=== PATIENT | male | born 1995 | race Caucasian/White ===

== ENCOUNTER 2017-06-17 07:49 | Emergency (ER) | payer BC ==
[2017-06-17] MEDS ORDERED: Lidocaine 1% 20 ML MDV INJECT ONE (08:05)
[2017-06-17] MEDS ORDERED: Bacitracin Oint 1 GM U/D Packet TOP ONE (08:05)
--- NOTE | 2017-06-17 08:07 | EDM.PDOC ---
ED HPI GENERAL MEDICAL PROBLEM - General Chief Complaint: Lower Extremity Injury/Pain Stated Complaint: RIGHT INDEX FINGER TRAUMA Time Seen by Provider: 06/17/17 08:01 - History of Present Illness INITIAL COMMENTS - FREE TEXT/NARRATIVE: HISTORY AND PHYSICAL: History of present illness: The patient is a healthy 22-year-old male who presents after sustaining injury to his right index finger while at home. The patient was in his usual state of good health with no systemic complaints and he is unsure of his last tetanus shot, and he says that he was trying to get out the door to get his dog outside to go to the bathroom and he is unsure if the door scraped his finger or if the door pushed him and he impacted the finger. He's here because of a laceration to his right second finger and discomfort in that area. He said it would not stop bleeding otherwise he would not be here. He is able to flex and extend the finger and he does not have any neurosensory changes in the finger and no other injuries to the hand. He is right-hand dominant Review of systems: As per history of present illness and below otherwise all systems reviewed and negative. Past medical history: As per history of present illness and as reviewed below otherwise noncontributory. Surgical history: As per history of present illness and as reviewed below otherwise noncontributory. Social history: No reported history of drug or alcohol abuse. Family history: As per history of present illness and as reviewed below otherwise noncontributory. Physical exam: Gen.: Well-developed well-nourished man who is nontoxic and vital signs were reviewed by me HEENT: Atraumatic, normocephalic, negative for conjunctival pallor or scleral icterus, mucous membranes moist, throat clear, neck supple, nontender, trachea midline. Lungs: Clear to auscultation, breath sounds equal bilaterally, chest nontender. Heart: S1S2, regular rate and rhythm no overt murmurs Abdomen: Soft, nondistended, nontender. NABS Pelvis: Deferred Genitourinary: Deferred. Rectal: Deferred. Extremities: Atraumatic with full range of motion of all extremities including the right index finger where there is a 2.75 cm laceration in a curved fashion around the PIP area. There is no soft tissue swelling and the skin edges do separate. No foreign bodies are appreciated. There are no palpable bony deformities and there are no other injuries to the other digits or hand. The legs are, negative for cords or calf pain. Neurovascular unremarkable. Neuro: Awake, alert, oriented. Cranial nerves II through XII unremarkable. Cerebellum unremarkable. Motor and sensory unremarkable throughout. Exam nonfocal. Diagnostics: X-ray right index finger Therapeutics: Tdap, wound care Procedure note--- after the procedure was explained to the patient and the area was irrigated by nursing the wound is explored and no foreign bodies are appreciated. 1% lidocaine without epinephrine was placed in a digital and local block fashion. The skin edges were reapproximated using simple interrupted sutures for a total number of #5 sutures of 4-0 nylon. There are no complications and the patient tolerated the procedure well. Bacitracin and a tube gauze was placed by nursing. Impression: Right index finger injury/laceration Definitive disposition and diagnosis as appropriate pending reevaluation and review of above. right index finger Pain Score (Numeric/FACES): 3 - Related Data Allergies Allergy/AdvReac Type Severity Reaction Status Date / Time No Known Allergies Allergy Verified 06/17/17 08:30 Home Meds: Home Meds . [No Known Home Meds] 06/17/17 [History] Review of Systems - Review of Systems Review Of Systems: ROS reveals no pertinent complaints other than HPI. ED EXAM, GENERAL - Physical Exam Exam: See Below (See dictation) Course - Vital Signs Last Recorded V/S: Last Vital Signs Temp 37.1 C 06/17/17 08:19 Pulse 74 06/17/17 08:19 Resp 18 06/17/17 08:19 BP 136/80 06/17/17 08:19 Pulse Ox 96 06/17/17 08:19 - Orders/Labs/Meds Orders: Active Orders 24 hr Category Date Time Status Communication Order [RC] STAT Care 06/17/17 08:05 Active Vaccines to be Administered [RC] PER UNIT ROUTINE Care 06/17/17 08:10 Active Meds: Medications Discontinued Medications Generic Name Dose Route Start Last Admin Trade Name Freq PRN Reason Stop Dose Admin Bacitracin 1 dose 06/17/17 08:05 06/17/17 08:36 Bacitracin Oint 1 Gm TOP 06/17/17 08:06 1 dose ONETIME ONE Administration Diphtheria/Tetanus/Acell Pertussis 0.5 ml 06/17/17 08:10 06/17/17 08:36 Adacel IM 06/17/17 08:11 0.5 ml .ONCE ONE Administration Lidocaine HCl 20 ml 06/17/17 08:05 06/17/17 08:36 Xylocaine 1% INJECT 06/17/17 08:06 20 ml ONETIME ONE Administration Departure - Departure Time of Disposition: 09:03 Disposition: Home, Self-Care 01 Condition: Good Clinical Impression: Finger laceration Qualifiers: Encounter type: initial encounter Finger: index finger Damage to nail status: without damage Foreign body presence: without foreign body Laterality: right Qualified Code(s): S61.210A - Laceration without foreign body of right index finger without damage to nail, initial encounter - Discharge Information Referrals: PCP,None [Primary Care Provider] - Forms: ED Department Discharge Additional Instructions: The following information is given to patients seen in the emergency department who are being discharged to home. This information is to outline your options for follow-up care. We provide all patients seen in our emergency department with a follow-up referral. The need for follow-up, as well as the timing and circumstances, are variable depending upon the specifics of your emergency department visit. If you don't have a primary care physician on staff, we will provide you with a referral. We always advise you to contact your personal physician following an emergency department visit to inform them of the circumstance of the visit and for follow-up with them and/or the need for any referrals to a consulting specialist. The emergency department will also refer you to a specialist when appropriate. This referral assures that you have the opportunity for followup care with a specialist. All of these measure are taken in an effort to provide you with optimal care, which includes your followup. Under all circumstances we always encourage you to contact your private physician who remains a resource for coordinating your care. When calling for followup care, please make the office aware that this follow-up is from your recent emergency room visit. If for any reason you are refused follow-up, please contact the [facility] emergency department at and ask to speak to the emergency department charge nurse. [facility] Specialty clinic-Plastic Surgery and Hand Surgery Professional [address] [address] Keep dressing that was placed in the ER on for the next 24 hours then remove the dressing and cleanse with mild soap and water and pat dry. Please try to cleanse the area at least twice a day and apply bacitracin or Neosporin. Please stop the ointment after 3 days. Sutures need to be removed in 7 days either here in the ER with our hand specialist. Return to ER sooner for any problems and as discussed. - My Orders Last 24 Hours: My Active Orders 06/17/17 08:05 Communication Order [RC] STAT 06/17/17 08:10 Vaccines to be Administered [RC] PER UNIT ROUTINE - Assessment/Plan Last 24 Hours: My Active Orders 06/17/17 08:05 Communication Order [RC] STAT 06/17/17 08:10 Vaccines to be Administered [RC] PER UNIT ROUTINE
[2017-06-17] MEDS ORDERED: Diphtheria,Pertussis(Acell),Tetanus Vaccine 0.5 ML Syringe IM ONE (08:10)
--- NOTE | 2017-06-17 08:50 | CR ---
EXAMINATION: Right hand, second digit HISTORY: Trauma COMPARISON: None TECHNIQUE: 3 views FINDINGS/IMPRESSION: There is no acute osseous abnormality, dislocation, or fracture. Bone mineraliza tion and joint spaces appear preserved. Small osseous density adjacent to the third PIP joint is like ly a sesamoid.
== END 2017-06-17 09:19 | disposition home or self-care (01) ==
LOC: MW.ED 07:49
DX: S61.210A Laceration without foreign body of right index finger without damage to nail, initial encounter (principal); X58.XXXA Exposure to other specified factors, initial encounter; Z23 Encounter for immunization
CPT/HCPCS: 12002; 73140-26-F6; 73140-F6; 90471; 90715; 99283; 99283-25

== ENCOUNTER 2019-09-02 07:18 | Emergency (ER) | payer BC ==
[2019-09-02] MEDS ORDERED: Ketorolac 30 MG/ML SDV IM ONE (07:51)
--- NOTE | 2019-09-02 07:57 | EDM.PDOC ---
ED HPI GENERAL MEDICAL PROBLEM - General Chief Complaint: Lower Extremity Injury/Pain Stated Complaint: RT ANKLE PAIN Time Seen by Provider: 09/02/19 07:51 Source of Information: Reports: Patient History Limitations: Reports: No Limitations - History of Present Illness INITIAL COMMENTS - FREE TEXT/NARRATIVE: This is a 24-year-old gentleman who presents to the emergency room with a chief complaint of right lateral pain. Patient states that he has pain on the top of his foot that is worsened with movement. Patient states in the past he has pain in his great toe. Patient denies any trauma. Patient is employed through [employer] which involves a lot of walking. Patient did not walk a lot yesterday. Duration: Hour(s):, Getting Worse Location: Reports: Lower Extremity, Right Quality: Reports: Ache Severity: Mild Improves with: Reports: None Worsens with: Reports: None Associated Symptoms: Reports: No Other Symptoms foot Pain Score (Numeric/FACES): 8 - Related Data Allergies Allergy/AdvReac Type Severity Reaction Status Date / Time No Known Allergies Allergy Verified 09/02/19 07:49 Home Meds: Home Meds . [No Known Home Meds] 06/17/17 [History] Past Medical History Hematologic History: Reports: Other (See Below) Other Hematologic History: spherocytosis - Past Surgical History GI Surgical History: Reports: Other (See Below) Other GI Surgeries/Procedures: splenectomy Social & Family History - Family History Family Medical History: Noncontributory - Caffeine Use Caffeine Use: Reports: None Review of Systems - Review of Systems Review Of Systems: See Below Constitutional: Reports: No Symptoms Ears: Reports: No Symptoms Nose: Reports: No Symptoms Mouth/Throat: Reports: No Symptoms Respiratory: Reports: No Symptoms Cardiovascular: Reports: No Symptoms GI/Abdominal: Reports: No Symptoms Genitourinary: Reports: No Symptoms Musculoskeletal: Reports: Foot Pain Skin: Reports: No Symptoms Neurological: Reports: No Symptoms Psychiatric: Reports: No Symptoms ED EXAM, GENERAL - Physical Exam Exam: See Below General Appearance: Alert, WD/WN, No Apparent Distress Eye Exam: Bilateral Eye: Normal Fundi, Normal Inspection Ears: Normal External Exam, Normal Canal, Hearing Grossly Normal Ear Exam: Bilateral Ear: Auricle Normal, Canal Normal, TM normal Nose: Normal Inspection, Normal Mucosa, No Blood Throat/Mouth: Normal Inspection, Normal Lips, Normal Teeth, Normal Gums, Normal Oropharynx, Normal Voice, No Airway Compromise Head: Atraumatic, Normocephalic Neck: Normal Inspection, Supple, Non-Tender Respiratory/Chest: No Respiratory Distress Cardiovascular: Normal Peripheral Pulses, Regular Rate, Rhythm, No Murmur, No Rub GI/Abdominal: Normal Bowel Sounds, Soft, Non-Tender, No Abnormal Bruit, No Mass , Pelvis Stable (Male) Exam: No Hernia, Normal Inspection, Deferred Back Exam: Normal Inspection, Full Range of Motion Extremities: Normal Inspection, Normal Range of Motion, Normal Capillary Refill Neurological: Alert, Oriented, CN II-XII Intact Psychiatric: Normal Affect, Normal Mood Skin Exam: Warm, Dry, Intact, Normal Color Lymphatic: No Adenopathy Course - Vital Signs Text/Narrative:: This young gentleman presents to the emergency room complaining of foot pain. 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 No acute fractures are seen on x-ray. Patient has been given Toradol for pain. Patient does have minimal swelling of the lateral side dorsal aspect of the foot. Assessment: This might represent a possible old injury/arthritic pain versus gout. Patient has been instructed to follow-up with his primary care physician we will give the patient anti-inflammatory medications. Instruction as far as gout and diet. Last Recorded V/S: Last Vital Signs Temp 96.5 F L 09/02/19 07:49 Pulse 74 09/02/19 07:49 Resp 18 09/02/19 07:49 BP 110/65 09/02/19 07:49 Pulse Ox 97 09/02/19 07:49 - Orders/Labs/Meds Meds: Medications Discontinued Medications Generic Name Dose Route Start Last Admin Trade Name Stan PRN Reason Stop Dose Admin Ketorolac Tromethamine 30 mg 09/02/19 07:51 09/02/19 08:07 Toradol IM 09/02/19 07:52 30 mg ONETIME ONE Administration Departure - Departure Time of Disposition: 08:50 Disposition: Home, Self-Care 01 Condition: Good Clinical Impression: Gout, Fracture of foot - Discharge Information Instructions: Low-Purine Eating Plan Referrals: PCP,None [Primary Care Provider] - Forms: ED Department Discharge Sepsis Event Note - Focused Exam Vital Signs: Vital Signs Temp Pulse Resp BP Pulse Ox 09/02/19 07:49 96.5 F L 74 18 110/65 97 Date Exam was Performed: 09/02/19 Time Exam was Performed: 08:49
--- NOTE | 2019-09-02 08:21 | CR ---
Right foot: 3 views of the right foot were obtained. Comparison: No prior right foot exam. Bony density which is well-corticated is noted off the IP joint of the 1st digit compatible with old ununited avulsion injury. No acute fracture, dislocation or other bony abnormality is appreciated. Impression: 1. 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 2. No additional abnormality is appreciated on 3 view right foot exam. Diagnostic code #2 This report was dictated in MDT
== END 2019-09-02 09:09 | disposition home or self-care (01) ==
LOC: MW.ED 07:18
DX: S92.401 Displaced unspecified fracture of right great toe (principal); M10.9 Gout, unspecified; X58.XXXA Exposure to other specified factors, initial encounter
CPT/HCPCS: 73630; 96372; 99283; J1885

== ENCOUNTER 2023-11-24 17:49 | Emergency (ER) | payer OTHER, BC ==
[2023-11-24] MEDS ORDERED: Sodium Chloride 0.9% 10 ML Syringe FLUSH PRN (17:58)
[2023-11-24] MEDS ORDERED: Sodium Chloride 0.9% 2.5 ML Syringe FLUSH PRN (17:58)
[2023-11-24 18:13] LABS: HEMATOCRIT 43.3 % (42.0-52.0); HEMOGLOBIN 16.2 g/dL (14.0-18.0); MEAN CORPUSCULAR HEMOGLOBIN 32.4 pg (28.0-32.0); MEAN CORPUSCULAR HGB CONC 37.4 g/dL (32.0-36.0); MEAN CORPUSCULAR VOLUME 86.6 fL (83.0-99.0); MEAN PLATELET VOLUME 10.1 fL (9.4-12.4); PLATELET COUNT,PLT 406 K/uL (150-400); WHITE BLOOD CELL COUNT,WBC 25.31 K/uL (3.9-11.3)
[2023-11-24 18:36] LABS: A/G RATIO 1.3 (0.9-1.6); ALBUMIN 4.4 g/dL (3.4-5.0); BILIRUBIN TOTAL 1.2 mg/dL (0.2-1.0); CALCIUM 9.1 mg/dL (8.5-10.1); CARBON DIOXIDE,CO2 24.6 mmol/L (21.0-32.0); CREATININE 1.2 mg/dL (0.8-1.3); EST CRCL DRUG DOSING (CG) 112.52 mL/min; PROTEIN TOTAL,TP 7.8 g/dL (6.4-8.2)
[2023-11-24 18:50] LABS: BAND ABSOLUTE MAN 3.54; EOSINOPHILS ABSOLUTE MAN 0.25 K/uL (0.00-0.45); EOSINOPHILS PERCENT MAN 1 % (0-6); LYMPHOCYTES ABSOLUTE MAN 3.54 K/uL (1.00-4.80); LYMPHOCYTES PERCENT MAN 14 % (24-44); MONOCYTES ABSOLUTE MAN 2.02 K/uL (0.00-0.80); MONOCYTES PERCENT MAN 8 % (0-8); SEG NEUTROPHILS ABSOLUTE MAN 19.49 K/uL (1.80-7.70); SEG NEUTROPHILS PERCENT MAN 77 % (41-71)
[2023-11-24] MEDS: Iopamidol 755 MG/ML 500 ML Multipack Bottle IVPUSH STA (18:53)
[2023-11-24 19:06] LABS: INR 1.05 (0.86-1.11)
== END 2023-11-24 20:26 | disposition home or self-care (01) ==
LOC: MW.ED 17:49
DX: S40.011A Contusion of right shoulder, initial encounter (principal); Z75.8 Other problems related to medical facilities and other health care; V89.2XXA Person injured in unspecified motor-vehicle accident, traffic, initial encounter
CPT/HCPCS: 36415; 70450; 71045; 71275; 72125; 73030; 73070; 74177; 80053; 85025; 85610; 86850; 86900; 86901; 99284; Q9967

== ENCOUNTER 2025-03-24 14:34 | Emergency (ER) | payer BC, OTHER ==
[2025-03-24] MEDS: Lidocaine 1% with EPINEPHrine 1:200,000 30 ML SDV INJECT ONE (15:07)
[2025-03-24] MEDS ORDERED: Diphtheria,Pertussis(Acell),Tetanus Vaccine 0.5 ML Syringe ONE (16:09)
[2025-03-24] MEDS: Diphtheria,Pertussis(Acell),Tetanus Vaccine 0.5 ML Syringe IM ONE (16:12)
== END 2025-03-24 16:35 | disposition home or self-care (01) ==
LOC: MW.ED 14:34
DX: S81.812A Laceration without foreign body, left lower leg, initial encounter (principal); Z23 Encounter for immunization; Z75.3 Unavailability and inaccessibility of health-care facilities; Z79.899 Other long term (current) drug therapy; X58.XXXA Exposure to other specified factors, initial encounter
CPT/HCPCS: 12004; 90471; 90715; 99282; A9270; J2004; 99284